=== PATIENT | female | born 1985 | race Hispanic/Latino ===

== ENCOUNTER 2017-09-21 14:01 | Outpatient (CLI) | payer OTHER ==
[2017-09-21 14:47] VITALS: BP 109/63
--- NOTE | 2017-09-21 16:39 | Ultrasound Report ---
FINAL REPORT EXAM: US OB BPP EA ADD EXAM HISTORY: well being TECHNIQUE: Biophysical profile obstetrical ultrasound for baby A PRIORS: None. FINDINGS: LMP 03/20/2017 clinical Age: 26 w 3 d LMP EDC 12/25/2017 Biophysical profile scoring 2 movement 2 tone 2 breathing 2 fluid 8/8 overall score Presentation: Breech Activity: Monitored Cardiac motion: 138 BPM using M-mode doppler Amniotic Fluid Volume: Adequate IMPRESSION: Single intrauterine viable with an approximate age of 26 weeks 3 days. Biophysical profile score is 8/8. Baby a is in breech position.
--- NOTE | 2017-09-21 16:42 | Ultrasound Report ---
FINAL REPORT EXAM: US OB BPP WO NON-STRESS HISTORY: well being TECHNIQUE: Biophysical profile obstetrical ultrasound for baby B PRIORS: None. FINDINGS: LMP 03/20/2017 clinical Age: 26 w 3 d LMP EDC 12/25/2017 Biophysical profile scoring 2 movement 2 tone 2 breathing 2 fluid 8/8 overall score Presentation: Breech Activity: Monitored Cardiac motion: 137 BPM using M-mode doppler Amniotic fluid volume: Normal IMPRESSION: Twin intrauterine viable with an approximate age of 26 weeks 3 days. Biophysical profile score is. 8/8. Baby B is in breech position.
== END 2017-09-21 17:19 | disposition home or self-care (01) ==
LOC: TRG 14:01 → LD 14:04 → TRG 17:19
PROVIDERS: ATTEND Obstetrics & Gynecology
DX: O32.1XX0 Maternal care for breech presentation, not applicable or unspecified (principal); O47.02 False labor before 37 completed weeks of gestation, second trimester; Z3A.26 26 weeks gestation of pregnancy
CPT/HCPCS: 59025; 76819

== ENCOUNTER 2017-09-30 22:46 | Outpatient (CLI) | payer OTHER ==
[2017-10-01 01:03] LABS: Bacteria,Urine 1+ /HPF (Negative); Bilirubin,Urine NEG (Negative); Blood,Urine NEG (Negative); Color,Urine Amber (Yellow); Protein,Urine <15 mg/dL mg/dL (Negative); Urobilinogen,Urine < 2.0 mg/dL (<2.0)
[2017-10-02 12:15] VITALS: BP 123/75
== END 2017-10-01 01:05 | disposition home or self-care (01) ==
LOC: TRG 22:46 → LD 22:47 → TRG 10-01 01:05
PROVIDERS: ATTEND Obstetrics & Gynecology
DX: O26.892 Other specified pregnancy related conditions, second trimester (principal); R10.9 Unspecified abdominal pain; Z3A.27 27 weeks gestation of pregnancy
CPT/HCPCS: 59025; 81001; 87086

== ENCOUNTER 2017-10-18 15:06 | Outpatient (CLI) | payer OTHER ==
[2017-10-18 16:49] VITALS: BP 124/79
== END 2017-10-18 17:49 | disposition home or self-care (01) ==
LOC: TRG 15:06
PROVIDERS: ATTEND Obstetrics & Gynecology
DX: O47.03 False labor before 37 completed weeks of gestation, third trimester (principal); Z3A.30 30 weeks gestation of pregnancy
CPT/HCPCS: 59025

== ENCOUNTER 2017-10-25 19:56 | Outpatient (CLI) | payer OTHER | END 2017-10-25 22:00 | disposition home or self-care (01) | LOC: TRG 19:56 | PROVIDERS: ATTEND Obstetrics & Gynecology | DX: O47.03 False labor before 37 completed weeks of gestation, third trimester (principal); Z3A.31 31 weeks gestation of pregnancy; Z87.891 Personal history of nicotine dependence | CPT/HCPCS: 59025 ==